=== PATIENT | female | born 1935 | race Hispanic/Latino ===

== ENCOUNTER 2018-03-07 14:51 | Emergency (ER) | payer OTHER ==
[~2018-03-07] VITALS: Ht 157.5 cm; Wt 80.3 kg
--- OUTSIDE RECORDS SUMMARY | 2018-03-07 14:55 | XMS REPORT ---
Author [facility] Address Unknown Phone Unavailable Care Team Providers Care Pairer Inspector Name Role Phone Unavailable Unavailable Problems This patient has no known problems. Allergies, Adverse Reactions, Alerts This patient has no known allergies or adverse reactions. Medications This patient has no known medications. Encounters Start Date/Time End Date/Time Encounter Type Admission Type Attending Clinicians [facility] Facility Care Department Encounter ID 2017-08-22 23:03:23 2017-08-22 23:03:23 Emergency [facility] [id number] 2017-08-10 07:59:52 2017-08-10 07:59:[address] [facility] [id number] 2016-07-21 07:52:15 2016-07-21 07:52:[address] [facility] [id number] 2016-06-16 10:28:22 2016-06-16 10:28:[address] [facility] [id number]
--- OUTSIDE RECORDS SUMMARY | 2018-03-07 14:55 | XMS REPORT | Clinical Summary ---
Author Author [facility] Organization [facility] Address Unknown Phone Unavailable Care Team Providers Care Condenser Tube Tender Name Role Phone Whit Wick MD PCP Allergies Comments Active Allergy Reactions Severity Noted Date No allergies to latex No Known Allergies 05/07/2007 Medications End Date Status Medication Sig Dispensed Refills Start Date Active acetaminophen (TYLENOL) Take 2 30 tablet 1 325 mg tabletIndications: tablets by 3 Knee pain mouth every 6 hours as needed for Pain. Active METFORMIN HCL (METFORMIN Take by 0 OR) mouth. Active gabapentin (NEURONTIN) Take 1 180 capsule 3 400 mg capsule by 6 capsuleIndications: mouth 2 times Primary osteoarthritis of daily. left knee 08/26/2017 polyethylene glycol 3350 Mix 17 grams 14 Each 0 (GLYCOLAX) 17 gram oral into 4 to 8 8 powder packetIndications: ounces of Flank pain water, juice, soda, tea or coffee and drink as directed. Status Hospital, Clinic, or Ordered Dose Route Frequency Start End Date Other Facility Date Administered Medication Ended lidocaine (XYLOCAINE) 20 0.5 mL IJ ONCE 08/11/19 mg/mL (2 %) injection 0.5 18 8 mLIndications: Synovitis of left knee Ended triamcinolone acetonide 40 mg IX ONCE 08/11/19 (KENALOG-40) injection 40 18 8 mgIndications: Synovitis of left knee Active Problems Problem Noted Date Primary osteoarthritis of left knee 06/15/2017 Other screening mammogram 03/27/2006 Diabetes mellitus type II, uncontrolled Mixed hyperlipidemia Overview: Hyperlipidemia Abdominal tenderness of left lower quadrant Flank pain Encounters Care Team Description Date Type Specialty Lalit Goddard MD LLQ Tenderness (Primary Dx); Abdominal tenderness of left lower quadrant, rebound tenderness presence not specified; Left lower quadrant abdominal tenderness without rebound tenderness 08/22/2017 Emergency Emergency Medicine - 08/23/2017 Carissa Lundberg MD Synovitis of left knee (Primary Dx) 08/10/2017 Office Visit Family Practice Whit Wick MD Primary osteoarthritis of left knee (Primary Dx) 08/03/2017 Office Visit Family Practice Dana Hernandez Interpretation 08/03/2017 Telephone Whit Wick MD Edwards, Dineta D, MK Primary osteoarthritis of left knee (Primary Dx); Uncontrolled type 2 diabetes mellitus without complication, without long-term current use of insulin; Insect bite, initial encounter; Uses walker; Language barrier 06/15/2017 Office Visit Family Practice after 03/06/2017 Immunizations Name Dates Previously Given Next Due PCV 13 (Pnuemococcal 06/16/2016 Conjugated 13 Valent) Family History Medical History Relation Name Comments Arthritis Sister Heart Sister Hypertension Sister Stroke Sister Cancer Sister Relation Name Status Comments Father killed (Age 52) Mother childbirth (Age 35) Sister cancer (Age 73) Sister Sister Sister Sister Sister Son killed (Age 24) Social History Date Tobacco Use Types Packs/Day Years Used Never Smoker Smokeless Tobacco: Never Used Tobacco Cessation: Counseling Given: No Alcohol Use Drinks/Week oz/Week Comments No 0 Standard 0.0 drinks or equivalent Sex Assigned at Date Recorded Not on file Industry Job Start Date Occupation Not on file Not on file Not on file Travel End Travel History Travel Start No recent travel history available. Last Filed Vital Signs Time Taken Vital Sign Reading 08/23/2017 3:00 AM CDT Blood Pressure 142/58 08/23/2017 3:00 AM CDT Pulse 77 08/23/2017 3:00 AM CDT Temperature 36.9 C (98.5 F) 08/23/2017 3:00 AM CDT Respiratory Rate 18 08/23/2017 3:00 AM CDT Oxygen Saturation 96% - Inhaled Oxygen - Concentration 08/10/2017 8:02 AM CDT Weight 86.2 kg (190 lb) 08/10/2017 8:02 AM CDT Height 157.5 cm (5' 2") 08/10/2017 8:02 AM CDT Body Mass Index 34.75 Plan of Treatment Health Maintenance Due Date Last Done Comments DM HGBA1C (Yearly) 06/16/2017 06/16/2016, 05/29/2007, 05/01/2007, Additional history exists DM Retinal Exam (Yearly) 06/16/2017 06/16/2016 IMM Influenza Seasonal 11/05/2017 Oct to April (>/=19 yrs) DM Foot Exam (Yearly) 06/15/2018 06/15/2017, 06/15/2017 DM Microalbumin Urine 08/22/2018 08/22/2017, 06/16/2016, 09/20/2013, Scrn (Yearly) Additional history exists IMM Pneumococcal Age 64 Completed 03/26/2015 (Previously completed - and Up External) Procedures Comments Procedure Name Priority Date/Time Associated Diagnosis CT ABDOMEN AND PELVIS STAT 08/23/2017 Left lower quadrant CONTRAST 3:03 AM CDT abdominal tenderness without rebound tenderness BMP POC Routine 08/22/2017 5:51 PM CDT TROPONIN I POC Routine 08/22/2017 5:49 PM CDT UA CHEMISTRIES STAT 08/22/2017 5:37 PM CDT LIPASE STAT 08/22/2017 5:37 PM CDT LIVER PROFILE STAT 08/22/2017 5:37 PM CDT CBC/DIFF STAT 08/22/2017 5:37 PM CDT 12 LEAD EKG Routine 08/22/2017 5:36 PM CDT ARTHROCENTESIS Routine 08/10/2017 Synovitis of left knee -ASPIRATION/INJECTION, 9:03 AM CDT MAJOR JOINT DIABETIC FOOT EXAM Routine 06/15/2017 Uncontrolled type 2 8:21 AM CDT diabetes mellitus without complication, without long-term current use of insulin after 03/06/2017 Results * CT ABDOMEN AND PELVIS CONTRAST (08/23/2017 3:03 AM CDT) Impressions Performed At IMPRESSION: SMS 1.No acute abnormality in the abdomen or pelvis to explain the patient's symptoms. 2.Cholelithiasis without acute cholecystitis. If the report is "FINALIZED" it indicates that the attending/staff radiologist has reviewed the images and agrees with the resident's interpretation. Dictated By: Rose Marie Grissom MD, 08/23/2017 4:48 AM I have reviewed the study and agree with the findings in this report. Signed By: Thomas Yoder MD, 08/23/2017 5:06 AM Narrative Performed At EXAM: CT Abdomen and Pelvis WITH contrast SMS INDICATION: LLQ abdominal pain COMPARISON: None available TECHNIQUE: Abdomen and pelvis were scanned utilizing a multidetector helical scanner from the lung base to the pubic symphysis after administration of IV contrast. Coronal and sagittal reformations were obtained. Routine protocol was performed. Scan was performed when during portal venous phase. IV CONTRAST: 100 mL of Omnipaque 300 ORAL CONTRAST: None COMPLICATIONS: None RADIATION DOSE: Total DLP: 785 mGy*cm Estimated effective dose: (DLP x 0.015 x size factor) mSv CTDIvol has been reviewed. It is below the limits set by the Radiation Protocol Committee (RPC). FINDINGS: LINES and TUBES: None. LOWER THORAX:7 mm pleural-based right middle lobe calcified granuloma. Otherwise unremarkable. HEPATOBILIARY: Multiple subcentimeter hypodensity in the left hepatic lobe are too small to characterize, but likely represent simple cysts. No biliary ductal dilation. GALLBLADDER: Multiple gallstones . No wall thickening or pericholecystic fluid. SPLEEN: No splenomegaly. Calcified granuloma. PANCREAS: No focal masses or ductal dilatation.Fatty infiltration of the pancreatic parenchyma. Imaging ADRENALS: No adrenal nodules KIDNEYS/URETERS: Kidneys enhance symmetrically.No hydronephrosis. 5.6 cm exophytic cyst in the left inferior pole. 1.3 cm simple cyst in the right inferior pole. No stones. GI TRACT: No abnormal distention, wall thickening, or evidence of bowel obstruction. Appendix is normal. PELVIC ORGANS/BLADDER: Dystrophic calcifications throughout the uterus and ovaries, left greater than right. Multiple pelvic phleboliths. Mild circumferential bladder wall thickening likely related to underdistention. LYMPH NODES: No lymphadenopathy. VESSELS: There is moderate atherosclerotic disease in the aorta and major arterial branches. PERITONEUM / RETROPERITONEUM: No free air or fluid. BONES: Multilevel degenerative changes of the lower thoracic and lumbar spine. SOFT TISSUES: Small umbilical fat-containing hernia.Right gluteal injection granulomas. Procedure Note Interface, Rad/Mammog In - 08/23/2017 5:11 AM CDT EXAM: CT Abdomen and Pelvis WITH contrast INDICATION: LLQ abdominal pain COMPARISON: None available TECHNIQUE: Abdomen and pelvis were scanned utilizing a multidetector helical scanner from the lung base to the pubic symphysis after administration of IV contrast. Coronal and sagittal reformations were obtained. Routine protocol was performed. Scan was performed when during portal venous phase. IV CONTRAST: 100 mL of Omnipaque 300 ORAL CONTRAST: None COMPLICATIONS: None RADIATION DOSE: Total DLP: 785 mGy*cm Estimated effective dose: (DLP x 0.015 x size factor) mSv CTDIvol has been reviewed. It is below the limits set by the Radiation Protocol Committee (RPC). FINDINGS: LINES and TUBES: None. LOWER THORAX: 7 mm pleural-based right middle lobe calcified granuloma. Otherwise unremarkable. HEPATOBILIARY: Multiple subcentimeter hypodensity in the left hepatic lobe are too small to characterize, but likely represent simple cysts. No biliary ductal dilation. GALLBLADDER: Multiple gallstones . No wall thickening or pericholecystic fluid. SPLEEN: No splenomegaly. Calcified granuloma. PANCREAS: No focal masses or ductal dilatation. Fatty infiltration of the pancreatic parenchyma. Imaging ADRENALS: No adrenal nodules KIDNEYS/URETERS: Kidneys enhance symmetrically. No hydronephrosis. 5.6 cm exophytic cyst in the left inferior pole. 1.3 cm simple cyst in the right inferior pole. No stones. GI TRACT: No abnormal distention, wall thickening, or evidence of bowel obstruction. Appendix is normal. PELVIC ORGANS/BLADDER: Dystrophic calcifications throughout the uterus and ovaries, left greater than right. Multiple pelvic phleboliths. Mild circumferential bladder wall thickening likely related to underdistention. LYMPH NODES: No lymphadenopathy. VESSELS: There is moderate atherosclerotic disease in the aorta and major arterial branches. PERITONEUM / RETROPERITONEUM: No free air or fluid. BONES: Multilevel degenerative changes of the lower thoracic and lumbar spine. SOFT TISSUES: Small umbilical fat-containing hernia. Right gluteal injection granulomas. IMPRESSION IMPRESSION: 1. No acute abnormality in the abdomen or pelvis to explain the patient's symptoms. 2. Cholelithiasis without acute cholecystitis. If the report is "FINALIZED" it indicates that the attending/staff radiologist has reviewed the images and agrees with the resident's interpretation. Dictated By: Rose Marie Grissom MD, 08/23/2017 4:48 AM I have reviewed the study and agree with the findings in this report. Signed By: Thomas Yoder MD, 08/23/2017 5:06 AM Performing Organization Address [facility] Phone Number SMS * BMP POC (08/22/2017 5:51 PM CDT) CO2 POC 25Comment: Physician Notified 21 - 32 mmol/L BT MAIN[facility] 1 Chloride POC 102 98 - 107 mmol/L BT MAIN[facility] 1 Potassium POC 4.3 3.50 - 5.10 mmol/L BT MA[facility] 1 Sodium POC 137 136 - 145 mmol/L BT MA[facility] 1 Glucose POC 213 (H) 74 - 106 mg/dL BT [facility] 1 Urea Nitrogen 19 (H) 7 - 18 mg/dL BT [facility] POC 1 Creatinine POC 0.5 (L) 0.6 - 1.3 mg/dL BT [facility] 1 Calcium Ionized 1.18 1.15 - 1.29 mmol/L BT [facility] POC 1 Hemoglobin POC 14.6 12.0 - 16.0 g/dL BT [facility] 1 Hematocrit POC 43.0 37.0 - 47.0 % BT [facility] 1 GFR, Estimated >60 mL/min/1.73 m2 BT [facility] 1 GFR, Estim, >60 mL/min/1.73 m2 BT [facility] Afr-Am 1 Performing Organization Address [facility] [place] Number MISYS [facility] 1 * TROPONIN I POC (08/22/2017 5:49 PM CDT) Troponin POC 0.00 0.00 - 0.08 ng/mL BT [facility] 1 Performing Organization Address [facility] Phone Number MISYS [facility] 1 * UA CHEMISTRIES (08/22/2017 5:37 PM CDT) Color Yellow BT [facility] 4 Clarity Clear BT [facility] 4 Spec [place] 1.017 1.001 - 1.035 BT MA[facility] 4 pH 6.0 5 - 8 BT MAIN[facility]ATION 4 Protein Negative NEG BT MAIN[facility] 4 Glucose 1+ (A) NEG BT MAIN-STATION 4 Ketone Negative NEG BT MAIN[facility]ST[facility] 4 Bilirubin Negative NEG BT MAIN-STATION 4 Nitrate Negative NEG BT [facility] 4 Urobilinogen <1.0 0.2 - 1.0 EU/dL BT MAIN[facility] 4 Leukocyte Negative NEG BT [facility] 4 Blood Negative NEG BT [facility] 4 Specimen Urine Performing Organization Address [facility] Phone Number MISYS [facility] 4 * LIVER PROFILE (08/22/2017 5:37 PM CDT) T Protein 6.4 6.0 - 8.3 g/dL BT [facility] 1 Albumin 4.2 3.7 - 5.3 g/dL BT [facility] 1 T Bilirubin 0.3 0.2 - 1.2 mg/dL BT [facility]IN[facility] 1 Alk Phos 76 34 - 104 U/L BT [facility] 1 AST 15 13 - 39 U/L BT MA[facility] 1 ALT 13 7 - 52 U/L BT MAIN[facility] 1 D Bilirubin 0.1 0.0 - 0.2 mg/dL BT [facility] 1 Specimen Blood Performing Organization Address [facility] Phone Number MISYS BT [facility] 1 * LIPASE (08/22/2017 5:37 PM CDT) Pathologist [facility] Lipase 10 (L) 11 - 82 U/L BT [facility]IN[facility]ATION 1 Specimen Blood Performing Organization Address [facility] Phone Number MISYS BT [facility] 1 * CBC/DIFF (08/22/2017 5:37 PM CDT) WBC 6.7 4.5 - 11.0 K/uL BT MAIN-STATION 2 RBC 4.45 4.20 - 5.40 M/uL BT MAIN-STATION 2 Hemoglobin 14.0 12.0 - 16.0 g/dL BT MAIN-STATION 2 Hematocrit 41.9 37.0 - 47.0 % BT MAIN-ST[facility] 2 MCV 94 (H) 82 - 92 fL BT MAIN-[facility] 2 MCH 31.5 27.0 - 32.0 pg BT MAIN-STATION 2 MCHC 33.4 32.0 - 36.0 g/dL BT MAIN-[facility]ATION 2 RDW 44.0 36.4 - 46.3 fL BT MAIN-STATION 2 Platelet 177 150 - 400 K/uL BT MAIN-STATION 2 Mean Platelet 11.4 9.4 - 12.4 fL BT MAIN[facility]ATION Volume 2 Percent NRBC 0.0 BT MAIN-STATION 2 Absolute NRBC 0.00 BT MAIN-STATION 2 Neutrophil 65.1 34.0 - 70.0 % BT MAIN-[facility] 2 Lymphocyte 26.3 20.0 - 50.0 % BT MAIN-[facility] 2 Monocyte 7.5 5.0 - 12.0 % BT MAIN-[facility] 2 Eosinophil 0.7 0.7 - 5.0 % BT MAIN-[facility]ATION 2 Basophil 0.1 0.1 - 1.2 % BT MAIN-[facility]ATION 2 Pct Immat Gran 0.3 0.0 - 0.5 BT MAIN-STATION 2 Neutrophil, Abs 4.35 1.56 - 6.13 K/uL BT MAIN-STATION 2 Lymphocyte, Abs 1.76 1.18 - 3.74 K/uL BT MAIN-STATION 2 Monocyte, Abs 0.50 (H) 0.24 - 0.36 K/uL BT MAIN-STATION 2 Eosinophil, Abs 0.05 0.04 - 0.36 K/uL BT MAIN-STATION 2 Basophil, Abs 0.01 0.01 - 0.08 K/uL BT MAIN-STATION 2 Absol Immat 0.02 0.00 - 0.03 K/uL BT MAIN-STATION Gran 2 Specimen Blood Performing Organization Address City/State/Zipcode Phone Number MISYS BT [facility]IN-ST[facility] 2 * 12 LEAD EKG (08/22/2017 5:36 PM CDT) 12 LEAD EKG FOR [facility] Test Date:2017-08-22 Pat Name: JOHN BARRETT Department: Room: Gender: F [place]: [id number] [id number] 4-08 Requested By: Order Number: Nani maldonado MD: Corrina Mariano M.D. Measurements Intervals [place] Rate: 80 P:45 LA: 156 QRS: -17 QRSD: 87 T:45 QT: 346 QTc:401 Interpretive Statements SINUS RHYTHM MODERATE VOLTAGE CRITERIA FOR LVH, CONSIDER NORMAL VARIANT NONSPECIFIC ST ELEVATION Electronically Signed On 08-22-17 18:03:12 CDT by Corrina Mariano M.D. Performing Organization Address City/State/Zipcode Phone Number [facility] * ARTHROCENTESIS -ASPIRATION/INJECTION, MAJOR JOINT (08/10/2017 9:03 AM CDT) Narrative Performed At Carissa Lundberg MD 08/10/2017 12:11 PM Arthrocentesis -Aspiration/Injection, Major Joint Date/Time: 08/10/2017 9:04 AM Performed by: CARISSA LUNDBERG Authorized by: CARISSA LUNDBERG Indications: pain Body area: knee Joint: left knee Local anesthesia used: yes Anesthesia: Local anesthesia used: yes Local Anesthetic: topical anesthetic Sedation: Patient sedated: no Approach: medial Triamcinolone amount: 40 mg Lidocaine 2% amount: 0.5 mL Patient tolerance: Patient tolerated the procedure well with no immediate complications * DIABETIC FOOT EXAM (06/15/2017 8:21 AM CDT) Narrative Performed At Juan Maddox NP 06/15/20179:06 AM Diabetic Foot Exam was performed at 06/15/2017 8:21 AM.Right foot sensation is normal, right foot pulses are normal, right foot appearance is normal.Left foot sensation is normal,left foot pulses are normal, left foot appearance is normal. after 03/06/2017 Insurance Type Payer Benefit Subscriber ID Effective Phone Address Plan / Dates Group [employer] HMO [employer] xxxxxxxxx 2014-P [phone] [address] [id number] [place] [address]
[2018-03-07 16:33] LABS: BASOPHILS % 0.3 % (0.0-1.0); EOSINOPHILS # (AUTO) 0.1 (0.0-0.4); EOSINOPHILS % 1.7 % (0.0-6.0); HEMATOCRIT 38.6 % (34.2-44.1); HEMOGLOBIN 13.1 g/dL (12.0-16.0); LYMPHOCYTES # (AUTO) 1.3 (1.0-3.2); LYMPHOCYTES % 21.9 % (18.0-39.1); MEAN CORPUSCULAR HEMOGLOBIN 30.2 pg (28-32); MEAN CORPUSCULAR HGB CONC 33.9 g/dL (31-35); MEAN CORPUSCULAR VOLUME 88.9 fL (81-99); MONOCYTES # (AUTO) 0.5 (0.2-0.8); MONOCYTES % 8.6 % (4.4-11.3); NEUTROPHILS % 67.2 % (38.7-80.0); PLATELET COUNT 158 x10e3/uL (140-360); RED BLOOD COUNT 4.34 x10e6/uL (3.6-5.1)
[2018-03-07 16:49] LABS: ALANINE AMINOTRANSFERASE 113 IU/L (0-55); ALBUMIN 3.6 g/dL (3.5-5.0); ALBUMIN/GLOBULIN RATIO 1.1 (0.8-2.0); ALKALINE PHOSPHATASE 274 IU/L (40-150); ANION GAP 14.1 mmol/L (8-16); BLOOD UREA NITROGEN 16 mg/dL (7-26); BUN/CREATININE RATIO 23 (6-25); CARBON DIOXIDE 25 mmol/L (22-29); CHLORIDE 99 mmol/L (98-107); EST GLOMERULAR FILTRATION RATE > 60 ML/MIN (60-); GLUCOSE 244 mg/dL (74-118); POTASSIUM 4.1 mmol/L (3.5-5.1); SODIUM 134 mmol/L (136-145)
--- NOTE | 2018-03-07 16:54 | NUR ---
PT FRISIAN SPEAKING ONLY LANGUAGE LINE OFFERED AND USED FOR ASSESSMENT
--- NOTE | 2018-03-07 17:48 | Diagnostic Imaging Report ---
EXAM: ANKLE 3+ VIEWS LEFT DATE: 03/07/2018 3:55 PM INDICATION: Wound medial ankle COMPARISON: None FINDINGS: No acute fracture or subluxation. Ankle mortise symmetric. Soft tissue swelling present over the medial aspect of the ankle with ulceration. Vascular calcifications present. No definite osseous erosive changes. IMPRESSION: Soft tissue ulceration medial aspect ankle with no definite evidence of osteomyelitis. MRI with contrast could be obtained for further evaluation. Signed by: Dr. Aguila Sharma MD on 03/07/2018 5:45 PM
[2018-03-07 18:51] VITALS: BP 149/64
== END 2018-03-07 18:55 | disposition home or self-care (01) ==
LOC: ER 14:51
DX: Z48.00 Encounter for change or removal of nonsurgical wound dressing (principal); L97.329 Non-pressure chronic ulcer of left ankle with unspecified severity
CPT/HCPCS: 36415; 80053; 85025; 93926; 93971; 99283